=== PATIENT | female | born 1960 | race Two or more races ===

== ENCOUNTER → 2023-07-13 | Emergency (ER) | payer OTHER ==
[~2023-07-13] VITALS: Ht 162.6 cm; Wt 68.0 kg
[~2023-07-13] MED LIST: FARXIGA10 MG PO; FLECAINIDE ACE100 MG PO; JANUMET XR 50-1 EAC1 PO; LOSARTAN-HCTZ1 EAC1 PO; TOPROL XL25 M1 PO
== END | disposition home or self-care (01) ==
LOC: ER 21:18
DX: L72.3 Sebaceous cyst (principal); L08.9 Local infection of the skin and subcutaneous tissue, unspecified; I10 Essential (primary) hypertension
CPT/HCPCS: 10060; 96372; 99283; J0696; J1885